=== PATIENT | male | born 1985 | race Caucasian/White ===

== ENCOUNTER → 2017-11-09 14:53 | Outpatient (CLI) | payer OTHER, SELFPAY ==
--- NOTE | 2017-11-09 | DI.MRI.S_ITS ---
PROCEDURE: MR LUMBAR SPINE WO CON INDICATIONS: LOW BACK PAIN TECHNIQUE: Noncontrast sagittal T1 spin echo and T2 fast echo, sagittal STIR, axial T1 and T2 fast spin echo through the lumbar spine. In cases with scoliosis, additional coronal T2 fast spin echo may be performed. COMPARISON: None. FINDINGS: Image quality: Excellent. Alignment and Curvature: There is grade 1 retrolisthesis of L5 over S1. Bone Marrow: Degenerative endplate signal changes are present in L4, L5 and S1. No acute vertebral body compression fractures. Spinal Cord: Conus medullaris terminates at the L1-L2 level. Visualized cord demonstrates normal signal and size. Paraspinous Soft Tissues: No paravertebral masses. L1-L2: Normal appearance. L2-L3: Mild loss of disc height and disc desiccation. There is broad posterior disc bulge. The central canal is mildly narrowed. Mtcy-kb-ijppucez bilateral foraminal stenosis. L3-L4: Mild loss of disc height and disc desiccation. There is broad posterior disc bulge and disc osteophyte complex. The central canal is mildly narrowed. Xybd-zg-qefhhbee bilateral foraminal stenosis. L4-L5: Qeld-ck-psgcocqv loss of disc height and disc desiccation. There is broad posterior disc bulge and disc osteophyte complex. Superimposed posterior central disc protrusion. The central canal is mildly narrowed. Jppz-od-qdlqntzg bilateral foraminal stenosis. L5-S1: Mild loss of disc height and moderate disc desiccation. There is broad posterior disc bulge and posterior central disc protrusion. There is a right paramedian annular tear. The central canal is mildly narrowed. Moderate bilateral foraminal stenosis. IMPRESSION: 1. Multilevel degenerative disc disease and facet arthropathy as described. 2. Mild central canal stenosis as described. 3. Moderate foraminal stenosis at L5-S1 bilaterally, and bsjf-eq-glirinss foraminal stenoses at several other levels. Dictated by: Thao Cui M.D. on 11/09/2017 at 15:30 Transcribed by: YVETTE on 11/09/2017 at 15:37 Approved by: Thao Cui M.D. on 11/09/2017 at 17:37
== END ==
PROVIDERS: Visit Provider Family Medicine
DX: M54.5 Low back pain (principal); M51.36 Other intervertebral disc degeneration, lumbar region; M47.816 Spondylosis without myelopathy or radiculopathy, lumbar region
CPT/HCPCS: 72148

== ENCOUNTER 2018-01-05 10:57 | Inpatient (IN) | payer OTHER, SELFPAY ==
[2017-12-22 12:51] VITALS: BMI 32.1
[2018-01-05] VITALS (17 sets, daily range): BP systolic 89–139; BP diastolic 41–75; PULSE 73–109; RESP 10–19; TEMP 36–37.1; O2SAT 92–100; BMI 32.1
[2018-01-05] MEDS: LACTATED RINGERS 1,000 ML 42 ML IV ×2 (11:35→15:22)
--- NOTE | 2018-01-05 11:45 | PM.PREOP ---
Pre-operative Note Interval Note Pre-op Check: Yes History & Physical Reviewed by Physician, Yes Exam Performed and Yes History & Physical exam performed today by Physician Changes: No
[2018-01-05] MEDS: CEFAZOLIN 2 GM/100 ML FROZ.PIGGY IV ×2 (12:17→18:48)
--- NOTE | 2018-01-05 12:51 | SUR.OPER ---
Prone on spine table, head in foam head support, padded chest and pelvic supports, gel pad at knees, lower legs supported by pillows; nipples, genitalia and toes free of pressure, arms secured on foam padded arm boards at <90 degrees abduction. Tape over blanket at thigh secured to table.
[2018-01-05] MEDS: BUPIVACAINE 0.25% W/ EPI VIAL 50 ML INJ (13:05)
[2018-01-05] MEDS: BUPIVACAINE LIPOSOME 266 MG/20 ML VIAL INJ (13:11)
--- NOTE | 2018-01-05 14:29 | DI.RAD.S_ITS ---
PROCEDURE: XR LUMBAR SPINE 2-3V INDICATIONS: L5-S1 TLIF TECHNIQUE: 2 intraoperative fluoroscopic views of the lumbar spine were acquired. COMPARISON: None. FINDINGS: Bones: Patient is status post transpedicular fusion of L5 and S1 vertebral bodies with intervertebral spacer placement L5-S1 level. Alignment of lumbar spine is anatomic. Soft tissues: No suspicious soft tissue calcifications. IMPRESSION: Post fusion changes at L5-S1 level. Dictated by: Curt Watson M.D. on 01/05/2018 at 15:01 Approved by: Curt Watson M.D. on 01/05/2018 at 15:03
--- NOTE | 2018-01-05 14:30 | P.OP_ITS ---
Operative Date/Time/Diagnoses Date of procedure: 01/05/18 Time of procedure: 13:29 Pre-op diagnosis: 1. L5-S1 hx of microdiscectomy with epidural adhesion and scarring 2. L4-5, L5-S1 spinal stenosis 3. L5-S1 spondylosis with radiculopathy Procedure & Clinicians Procedure: 1. L5-S1 Postero-lateral and posterior interbody fusion 2. L5-S1 interbody cage placement. 3. L5-S1 decompressive laminectomy with bilateral facetecomies 4. L5-S1 Posterior non-segmental instrumentation 5. L4-5 hemilaminectomy 6. Utilization of microsurgical technique and operating microscope Same procedure as scheduled: Yes Indications: Patient has been having chronic back pain and worsening lumbar radiculopathy. Patient failed multiple conservative management with worsening pain weakness and numbness in her lower extremity. Patient has been having difficulty performing activity of daily living. After discussing risks benefits of treatment options, patient elected proceed with surgery. Surgeon: Amina Lan Chainstitch Felled Seam Operator: Savanah Garrido Click Yes if Unassisted: No Anesthesia Type: General Operative Notes Closure Type: primary Specimen(s): none sent Implants & Drains: Globus revolve screws and Rise cage Estimated Blood Loss (mL): 50 Blood products transfused: none Procedure in detail: Patient was seen in the preoperative area. Risks and benefits of the surgery was discussed with the patient. Informed consent was obtained from the patient and placed in the chart. Surgical site was marked. Patient was taken to the operative room. General anesthesia was administered. Prophylactic antibiotic was given to the patient less than 30 min before the incision was made. Patient was placed into a prone position on the Michael table. Patient's back was then prepped and draped in the sterile fashion. Time- out was performed at this time. Using AP and lateral C-arm imaging the interval between L4-5 L5-S1 was identified and marked on patient's back. A 2 inch incision 2 in from midline was made on the left side first. The fascia was incised in line with skin incision. Globus MARS retractors was placed inside the incision and docked onto the L5 lamina. Using microsurgical technique and operating microscope, a L5 laminectomy and L5-S1 facetectomy was performed using a Kerrison rongeur. The disc space at L5-S1 was identified. And a total diskectomy was performed at L5- S1 level. The endplates were decorticated using a rasp and shaver. The total diskectomy and decortication was performed at the L5-S1 level in order to to accomplish a L5-S1 interbody fusion. The local bone from the laminectomy and facetectomy was saved for local bone grafting. After the total diskectomy and decortication was completed, Globus viacell bone graft material was combined with local bone that was harvested earlier. Via cell bone graft was obtained and was placed into the L5-S1 interbody space along with a expandable cage. The cage was expanded to its maximum height using the torque limiting screwdriver. At this time the MARS retractor was redirected over the L4 lamina. Using microsurgical technique and operating microscope, a L4 heminectomy was performed using the Kerrison rongeur. The ligamentum flavum was also resected at the side of the hemilaminectomy for further decompression of the epidural space. At this time a mirror image incision was made on the right side. The fascia was incised in line with the skin incision. Globus MARS retractor was inserted and docked onto the L5-S1 posterolateral gutter. Using the power drill, posterior- lateral decortication was performed at L5-S1 level until bleeding cortical bone was identified. The remaining bone grafting material was placed into the L5-S1 posterior lateral gutter he order to accomplish posterolateral fusion at the L5- S1 level. Using the double C-arm technique, pedicle screws were placed into the L5 and S1 pedicles bilaterally. This was done by placing the Jamshidi needle into the pedicles, then placing the guidewires over the Jamshidi needle, and finally placing the cannulated screws over the guidewires bilaterally. After the pedicle screws were placed, 2 titanium rods was locked into the heads of the pedicle screws using locking caps and torque limiting screwdriver. After all the hardware was placed, and confirmed with AP and lateral C-arm imaging, the wound was then irrigated with sterile normal saline and packed with Ray-Elis gauze for 3 min to accomplish hemostasis. After the gauze was removed the deep fascia was closed with #1 Vicryl suture. The subcutaneous layer was closed with 2-0 Vicryl. The skin was closed with skin kaylie. Patient tolerated the procedure well. There were no complications. Complications: none Condition: stable Disposition: PACU Plan for aftercare: Admit to inpatient hospital
[2018-01-05] MEDS: HYDROMORPHONE 2 MG INJ 0.5 MG IV ×4 (14:53→15:23)
[2018-01-05] MEDS: LORazepam 2 MG/ML SYRINGE 0.25 MG IV ×2 (15:00→15:21)
--- NOTE | 2018-01-05 16:18 | PC.NURSE ---
patient up to floor at 1600, a&ox3, 99% on ra, denies nausea, sob, or dizziness. scd's are on and active. patient now sleeping after assessment/admission. patient stated pain is a 6/10, will administer pain medication as appropriate. dressing looked at by pacu and this rn, is c/d/i. rn clinical resource states patient voided before surgery; patient has been oriented to room/call light, and encouraged to call for assistance. ba is active. urinal placed at bedside and patient instructed on it's use. iv is patent, ivf infusing as ordered. call light in reach. will continue to monitor.
[2018-01-05] MEDS: SODIUM CHLORIDE 0.9% 1,000 ML 100 ML IV (16:36)
[2018-01-05] MEDS: OXYCODONE IR 5 MG TABLET 10 MG PO ×3 (16:37→23:50)
--- NOTE | 2018-01-05 17:55 | PT.IIE ---
Current Diagnoses Spinal stenosis, lumbar region without neurogenic claudication (01/05/18) Other specified postprocedural states (01/05/18) Surgery Performed Operation Date: 01/05/18 12:45 Actual Procedures p L4-5 Hemilaminectomy, L5-S1 TLIF w/Posterior Instru. - Amina Lan MD Surgical History (Last Updated 12/22/17 @ 13:42 by Kirti Hammond, RN) Hx of discectomy (Acute) Medical History (Last Updated 12/22/17 @ 13:12 by Kirti Hammond RN) Acid reflux (Acute) HTN (hypertension) (Acute) Numbness and tingling of both legs (Acute) Sciatica (Acute) Seasonal allergies (Acute) Sleep apnea with use of continuous positive airway pressure (CPAP) (Acute) Physical Therapy Inpatient Evaluation/Re-Eval M1 PT/OT-IP Prior Functional Status Start: 01/05/18 17:39 Freq: NEEDED Status: Active Protocol: Document 01/05/18 17:40 EA (Rec: 01/05/18 17:54 EA [id number]) Medical Review Prior Functional Status Medical History Reviewed Yes Diet/Fluid Consistency Regular Communication Alert, oriented x 3 Mobility and Gait Indep with ability to walk more than 3 blocks with no AD Activities of Daily Living and IADL's indep Prior Functional Level (Other details) [place] Social History Household Members spouse children Living Arrangements House Home Environment Standard Height Toilet Employment Status Unemployed Additional Social History Comment Last employed 1.5 month ago M2 PT-IP Current Condition Start: 01/05/18 17:39 Freq: NEEDED Status: Active Protocol: Document 01/05/18 17:40 EA (Rec: 01/05/18 17:54 EA [id number]) Physical Therapy Current Condition Current Condition Evaluation Date 01/05/18 Treatment Diagnosis S/P L5-S1 TLIF Precautions Lumbar Precautions Log Roll No Twisting Limit Bending Lifting Restriction of 10 lbs Gait Belt above Incisional Area Weight Bearing Status Weight Bearing Status Full Weight Bearing M3 PT-IP Subjective Start: 01/05/18 17:39 Freq: NEEDED Status: Active Protocol: Document 01/05/18 17:40 EA (Rec: 01/05/18 17:54 EA [id number]) Subjective Physical Therapy Visit Type Type Initial Evaluation Visit Start Time 16:50 Visit Stop Time 17:35 Total Visit Minutes 45 Physical Therapy Visit Comments Patient Comments Patient wants to get indep in all functional transfers and be able to walk 200 ft indep prior to discharge Therapy Pain Assessment Pain When Pain Assessed At Rest Pain Present Pain Present Pain Reported Location Lower Back Intensity 5 Description Acute M4 PT-IP Mobility and Gait Start: 01/05/18 17:39 Freq: NEEDED Status: Active Protocol: Document 01/05/18 17:40 EA (Rec: 01/05/18 17:54 EA [id number]) PT-Bed Mobility Assessment Rolling Type of Rolling Log Rolling Bilateral Level of Assist Contact Guard Assistance Minimal Assistance Supine to Sit Supine to Sit Contact Guard Assistance Minimal Assistance Sit to Supine Sit to Supine Contact Guard Assistance Minimal Assistance Scooting Scooting Up and Down in Bed Standby Assistance PT-Transfer Assessment Sit to and From Stand Sit to and from Stand Contact Guard Assistance Equipment Transfer Assistive Device Gait Belt Transfers Transfer Destination Bed Toilet Transfer Technique stepping Comments Mobility Comments Patient requires CGA due to general fatigue and slight nausea. Gait Assessment Gait Gait Assistance Required: Contact Guard Assist Able to Maintain Weight Bearing Status Yes During Gait Gait Deviations General Gait Pattern Within Normal Limits Comments Gait Comments Patient able to ambulate with near to normal gait, however slow and cautious. PT-Balance Assessment Sitting Balance and Reactions Static Sitting Balance Ability Good Standing Balance and Reactions Static Standing Balance Ability Good Comments Other Balance Tests/Deviations/Treatment Dynamic balance test not : performed due to pre-caution, however noted WFL with spontaneous movement. M5 PT-IP Objective Assessments Start: 01/05/18 17:39 Freq: NEEDED Status: Active Protocol: Document 01/05/18 17:40 EA (Rec: 01/05/18 17:54 EA [id number]) Orientation Orientation/Cognition Level of Alertness Alert Orientation Birthday Date Year Language Function Ability No Deficits Noted Safety Awareness Understands Safety Issues Memory Description No Deficits Noted Gross Range of Motion Upper Extremity ROM Assessment Within Functional Limits Lower Extremity ROM Assessment Within Functional Limits Strength Upper Extremity Strength Assessment Within Functional Limits Lower Extremity Strength Assessment Within Functional Limits Coordination Assessment Gross Coordination Gross Coordination WNL Assessment Pronation/Supination Test Normal Performance Foot Tapping Test Normal Performance Heel on Diaz Test Normal Performance Sensation Assessment Sensation Gross Sensation WNL Comments Sensation Comments Slight deficit to right medial calf with light touch M6 PT-IP Treatment Start: 01/05/18 17:39 Freq: NEEDED Status: Active Protocol: Document 01/05/18 17:40 EA (Rec: 01/05/18 17:54 EA [id number]) Physical Therapy Treatment Education Education Provided Precautions Weight Bearing Status Post-Op Packet Safety M7 PT-IP Assessment and Plan Start: 01/05/18 17:39 Freq: NEEDED Status: Active Protocol: Document 01/05/18 17:40 EA (Rec: 01/05/18 17:54 EA [id number]) PT Summary Assessment and Plan Potential Rehabilitation Potential Excellent Status of Condition at Evaluation Stable Summary Impairments Pain Bed Mobility Transfers Activity Tolerance Assessment Summary Patient exhibits decreased tolerance to functional transfers and mobility due to pain and general body fatigue. No noted significant weakness or sensory alteration to both LE's. Patient requires assistance at this time for safe mobility and transfers. Patient demonstrates good potential for recovery prior to discharge. Goals Bed Mobility Goal Independent Transfer Goal Independent Gait Goal Independent Gait Distance 200 ft Days to Meet Goals 1 Frequency of Treatment Frequency Of Treatment Twice a Day Treatment Plan Physical Therapy Treatment Plan Bed Mobility Training Transfer Training Gait Training Therapeutic Exercise Balance Retraining Discharge Planning Hot or Cold Pack Recommendations To Nursing Amount of Assist Needed 1 Person Assist Discharge Recommendations PT Discharge Recommendations Home with Assistance
--- NOTE | 2018-01-05 19:42 | PC.NURSE ---
patient up to br, has voided successfully. spouse and aunt have left facility, spouse will not be spending the night. patient is sitting up in chair with call light in reach. has eaten dinner, reports some minor nausea but refused interventions offered. oxycodone was successful in managing his pain. will continue to monitor.
[2018-01-05] MEDS: DOCUSATE 100 MG CAPSULE PO (20:24)
[2018-01-05] MEDS: SENNOSIDES 8.6 MG TABLET 17.2 MG PO (20:24)
[2018-01-05] MEDS: hydrOXYzine pamoate 25 MG CAPSULE PO (20:24)
[2018-01-05] MEDS: HYDROMORPHONE 1 MG INJ 0.5 MG IV (22:01)
--- NOTE | 2018-01-06 00:11 | PC.NURSE ---
Addendum entered by Judi Knight R.N. 01/06/18 05:54: Medicated with Oxycodone for complaint of 4/10 pain without movement. Discussed pain options availability . Original Note: Addendum entered by Judi Knight R.N. 01/06/18 05:16: Medicated with Vistaril for 5/10 pain and feels he is able to wait for Oxycodone rather than taking Dilaudid at this time. Shivering. Temp 96.6 so provided warm blankets. Increased drainage on dressing but now is more serosanguinous with no leakage. Will continue to monitor. Original Note: Addendum entered by Judi Knight R.N. 01/06/18 02:52: Woke patient (as he requested) to give pain medication (Oxycodone). Was sleeping soundly with FLACC of 0 but once awake states pain in right hip is 5/10; provided pain medication and ice pack for comfort. Original Note: Addendum entered by Judi Knight R.N. 01/06/18 01:07: States pain has gotton worse and is not 7/10; medicated with Vistaril + IV Dilaudid. Original Note: Patient is alert and oriented. Breath sounds are CTA with RA sat of 99%; using CPAP for sleep. HRR. Denies nausea. BT hypoactive but states he is passing flatus. Denies dysuria, frequency, urgency or incontinence. Moving self in bed but is assisted to bathroom when out of bed and is steady on feet. Dressing to back with sanguinous drainage noted and outlined. States pain after being up to bathroom is 6/10 in back and right hip; medicated with Oxycodone. Wearing bilateral footie SCD's. Fall risk score is medium; bed alarm not in use as patient oriented and calling for assistance appropriately.
[2018-01-06] MEDS: hydrOXYzine pamoate 25 MG CAPSULE PO ×3 (00:56→19:57)
[2018-01-06] MEDS: HYDROMORPHONE 1 MG INJ 0.5 MG IV (01:00)
[2018-01-06] MEDS: CEFAZOLIN 2 GM/100 ML FROZ.PIGGY IV (02:44)
[2018-01-06] MEDS: SODIUM CHLORIDE 0.9% 1,000 ML 100 ML IV (02:45)
[2018-01-06] MEDS: OXYCODONE IR 5 MG TABLET 10 MG PO ×7 (02:47→22:44)
[2018-01-06 05:10] VITALS: BP 140/59; PULSE 96; RESP 16; TEMP 35.9; O2SAT 95
[2018-01-06 06:05] LABS: Hematocrit 42.4 % (41-53); Hemoglobin 14.9 g/dL (13.5-17.5)
[2018-01-06 07:45] VITALS: BP 143/76; PULSE 94; RESP 16; TEMP 36.4; O2SAT 99
[2018-01-06] MEDS: HYDROMORPHONE 0.5 MG INJ IV ×2 (07:56→19:57)
[2018-01-06] MEDS: DOCUSATE 100 MG CAPSULE PO ×2 (07:57→20:01)
--- NOTE | 2018-01-06 08:13 | PT.IPTN ---
Current Diagnoses Spinal stenosis, lumbar region without neurogenic claudication (01/05/18) Other specified postprocedural states (01/05/18) Surgery Performed Operation Date: 01/05/18 12:45 Actual Procedures p L4-5 Hemilaminectomy, L5-S1 TLIF w/Posterior Instru. - Amina Lan MD Physical Therapy Treatment Note M2 PT-IP Current Condition Start: 01/05/18 17:39 Freq: NEEDED Status: Active Protocol: Document 01/05/18 17:40 EA (Rec: 01/05/18 17:54 EA [id number]) Physical Therapy Current Condition Current Condition Evaluation Date 01/05/18 Treatment Diagnosis S/P L5-S1 TLIF Precautions Lumbar Precautions Log Roll No Twisting Limit Bending Lifting Restriction of 10 lbs Gait Belt above Incisional Area Weight Bearing Status Weight Bearing Status Full Weight Bearing M3 PT-IP Subjective Start: 01/05/18 17:39 Freq: NEEDED Status: Active Protocol: Document 01/06/18 08:00 AMB (Rec: 01/06/18 08:13 AMB [email or web address]) Subjective Physical Therapy Visit Type Type Treatment Note Visit Start Time 07:45 Visit Stop Time 08:10 Total Visit Minutes 25 Number of INTERIM CONTROLLER Visits 0 Physical Therapy Visit Comments Patient Comments Pt reports 5/10 back pain Therapy Pain Assessment Pain When Pain Assessed At Rest Pain Present Pain Present Pain Reported M4 PT-IP Mobility and Gait Start: 01/05/18 17:39 Freq: NEEDED Status: Active Protocol: Document 01/06/18 08:00 AMB (Rec: 01/06/18 08:13 AMB [email or web address]) PT-Bed Mobility Assessment Rolling Type of Rolling Log Rolling Bilateral Level of Assist Standby Assistance Supine to Sit Supine to Sit Standby Assistance Sit to Supine Sit to Supine Standby Assistance PT-Transfer Assessment Equipment Transfer Assistive Device None Comments Mobility Comments Pt with SBA for IV management Stair Climbing Assessment Comments Stair Climbing Comments 3 ascend and descend M5 PT-IP Objective Assessments Start: 01/05/18 17:39 Freq: NEEDED Status: Active Protocol: Document 01/06/18 08:00 AMB (Rec: 01/06/18 08:13 AMB [email or web address]) Other Assessments Other Other Assessments Pt doing well this morning. Able to perform all bed moblity and gait without physical assistance. Still slow and careful, but denies dizziness or lightheadedness. Will be safe to d/c with when medically appropriate. M6 PT-IP Treatment Start: 01/05/18 17:39 Freq: NEEDED Status: Active Protocol: Document 01/06/18 08:00 AMB (Rec: 01/06/18 08:13 AMB [email or web address]) Physical Therapy Treatment Education Education Provided Precautions Safety M7 PT-IP Assessment and Plan Start: 01/05/18 17:39 Freq: NEEDED Status: Active Protocol: Document 01/06/18 08:00 AMB (Rec: 01/06/18 08:13 AMB [email or web address]) PT Summary Assessment and Plan Recommendations To Nursing Amount of Assist Needed Standby Assistance Discharge Recommendations PT Discharge Recommendations Home with Assistance
[2018-01-06] MEDS: DEXAMETHASONE 10 MG/ML VIAL IV (10:02)
[2018-01-06 11:45] VITALS: BP 147/73; PULSE 81; RESP 16; TEMP 36.4; O2SAT 99
--- NOTE | 2018-01-06 12:59 | OT.IP.EVAL ---
Current Diagnoses Spinal stenosis, lumbar region without neurogenic claudication (01/05/18) Other specified postprocedural states (01/05/18) Surgery Performed Operation Date: 01/05/18 12:45 Actual Procedures p L4-5 Hemilaminectomy, L5-S1 TLIF w/Posterior Instru. - Amina Lan MD Past Medical History (Last Updated 12/22/17 @ 13:12 by Kirti Hammond, RN) Acid reflux (Acute) HTN (hypertension) (Acute) Numbness and tingling of both legs (Acute) Sciatica (Acute) Seasonal allergies (Acute) Sleep apnea with use of continuous positive airway pressure (CPAP) (Acute) Surgical History (Last Updated 12/22/17 @ 13:42 by Kirti Hammond RN) Hx of discectomy (Acute) Occupational Therapy Inpatient Evaluation/Re-Eval M1 PT/OT-IP Prior Functional Status Start: 01/05/18 17:39 Freq: NEEDED Status: Active Protocol: Document 01/05/18 17:40 EA (Rec: 01/05/18 17:54 EA [id number]) Medical Review Prior Functional Status Medical History Reviewed Yes Diet/Fluid Consistency Regular Communication Alert, oriented x 3 Mobility and Gait Indep with ability to walk more than 3 blocks with no AD Activities of Daily Living and IADL's indep Prior Functional Level (Other details) [place] Social History Household Members spouse children Living Arrangements House Home Environment Standard Height Toilet Employment Status Unemployed Additional Social History Comment Last employed 1.5 month ago M1 PT/OT-IP Prior Functional Status Start: 01/06/18 12:47 Freq: NEEDED Status: Active Protocol: Document 01/06/18 12:47 CCC (Rec: 01/06/18 12:59 [facility] [id number]) Medical Review Prior Functional Status Medical History Reviewed Yes Diet/Fluid Consistency Regular Communication Alert, oriented x 3 Mobility and Gait Indep with ability to walk more than 3 blocks with no AD Activities of Daily Living and IADL's indep Prior Functional Level (Other details) Active type of work [place] Social History Household Members spouse children Living Arrangements House M2 OT-IP Current Condition Start: 01/06/18 12:47 Freq: Status: Active Protocol: Document 01/06/18 12:47 CCC (Rec: 01/06/18 12:59 [facility] [id number]) Occupational Therapy Current Condition Current Condition Evaluation Date 01/06/18 Treatment Diagnosis Spinal stenosis Diagnosis Onset Date 01/05/18 Post Operative Precautions Lumbar Precautions Log Roll No Twisting Limit Bending Lifting Restriction of 10 lbs Gait Belt above Incisional Area Weight Bearing Status Weight Bearing Status Full Weight Bearing M3 OT- IP Subjective and Pain Start: 01/06/18 12:47 Freq: Status: Active Protocol: Document 01/06/18 12:47 [facility] (Rec: 01/06/18 12:59 [facility] [id number]) OT- Subjective Occupational Therapy Visit Type Type Initial Evaluation Visit Start Time 12:00 Visit Stop Time 12:25 Total Visit Minutes 25 Occupational Therapy Visit Comments Patient Comments Pt willing to do OT. OT Pain Assessment Pain When Pain Assessed At Rest Pain Present Pain Present Denied Pain M4 OT- IP ADL's Start: 01/06/18 12:47 Freq: Status: Active Protocol: Document 01/06/18 12:47 [facility] (Rec: 01/06/18 12:59 [facility] [id number]) OT [id number] General Evaluation Self-Feeding Ability Independent OT ADL-Grooming General Evaluation Grooming Ability Standby Assistance Comments OT Grooming Comments Set-up only per pt. OT ADL-Dressing General Eval Upper Body Dressing Ability Independent Lower Body Dressing Ability Maximum Assistance Areas Needing Assistance Socks Comments OT Dressing Comments Pt educated on AED for LB dressing and now able to do independently. OT ADL-Toileting General Evaluation Toileting Ability Standby Assistance Comments OT Toileting Comments Pt walking without device, SBA for safety. Spoke of use of FWW to help stand or counter from toilet. OT ADL-Bathing Comments OT Bathing Comments Suggested to get shower chair. M6 OT- IP Functional Cognition Start: 01/06/18 12:47 Freq: Status: Active Protocol: Document 01/06/18 12:47 [facility] (Rec: 01/06/18 12:59 [facility] [id number]) Cognitive Factors Limiting Selfcare Function Cognitive Ability Level of Alertness Alert Patient Orientation Name Age Birthday Month Date Year Day of Week Place Situation Attention Span Ability Capable of Focused Attention Capable of Sustained Attention Ability to Follow Commands Able to Follow Multi-Step Commands Memory Description No Deficits Noted Safety Awareness No Deficits Noted OT- Vision and Hearing OT- Hearing Assessment OT- Hearing Assessment WFL M7 OT- IP Mobility and Balance Start: 01/06/18 12:47 Freq: Status: Active Protocol: Document 01/06/18 12:47 [facility] (Rec: 01/06/18 12:59 [facility] [id number]) OT-Transfer Assessment Sit to and From Stand Sit to and from Stand Standby Assistance Transfers Transfer Ability Standby Assistance OT- Balance Assessment Sitting Balance and Reactions Static Sitting Balance Ability Normal Dynamic Sitting Balance Ability Normal Standing Balance and Reactions Static Standing Balance Ability Good Dynamic Standing Balance Ability Fair M8 OT- IP Objective Assessments Start: 01/06/18 12:47 Freq: Status: Active Protocol: Document 01/06/18 12:47 [facility] (Rec: 01/06/18 12:59 [facility] [id number]) OT Gross Range of Motion Upper Extremity Range of Motion Assessment Within Functional Limits OT Strength Upper Extremity Strength Assessment Within Functional Limits M9 OT- IP Assessment and Plan Start: 01/06/18 12:47 Freq: Status: Active Protocol: Document 01/06/18 12:47 [facility] (Rec: 01/06/18 12:59 [facility] [id number]) OT Summary Assessment and Plan Potential Rehabilitation Potential Excellent Analytic Complexity at Evaluation Low Summary OT Impairments Functional Mobility Bathing Goals Dressing Goal Independent Toileting Goal Independent Bathing Goal Standby Assistance Toilet Transfer Goal Independent Shower Transfer Goal Standby Assistance Days to Meet Goals 2 Frequency of Treatment Frequency Of Treatment Once a Day Treatment Plan OT Treatment Plan ADL Training Functional Mobility Patient/Family Education Discharge Planning Discharge Recommendations OT Discharge Recommendations Home with Assistance Home Equipment Needs shower chair
[2018-01-06] MEDS: DEXAMETHASONE 4 MG TABLET PO ×2 (13:22→19:14)
--- NOTE | 2018-01-06 13:28 | PM.PNPO.1 ---
Subjective Date Patient Seen: 01/06/18 Time Patient Seen: 07:28 Interval history: POD #1 status post lumbar fusion with Dr. Lan. He is complaining of new right sided pain. The numbness and burning pain on his left foot has disappeared since surgery. His pain has been controlled with oxycodone. Patient has had no previous issues taking steroids. He has not been up with physical therapy yet. He is urinating without any difficulty or assistance. Exam Vital Signs (past 8 hours): - 01/06/18 07:45 01/06/18 11:45 Temperature 97.5 F L 97.5 F L Pulse Rate 94 H 81 Respiratory Rate 16 16 Blood Pressure 143/76 H 147/73 H Pulse Oximetry 99 99 Oxygen Delivery Method Room Air Oxygen Flow Rate 4 Narrative Exam Narrative: Patient lying in bed in no acute distress. He is alert and oriented x3. Calves are soft, compressible, nontender bilaterally. Pulses are symmetrical. He is able to Dorsiflex and plantar flex. 5/5 strength TA and EHL. Objective Labs Result Diagrams: 01/06/18 05:45 Labs: Laboratory Results - last 24 hr 01/06/18 05:45 Hgb 14.9 Hct 42.4 Assessment & Plan Post-op Postoperative Procedures Operation Date: 01/05/18 12:45 Actual Procedures Side Surgeon p L4-5 Hemilaminectomy, L5-S1 TLIF w/Posterior Instru. Amina Lan MD POD #1 status post lumbar fusion with Dr. Lan. Will continue current pain management. Will start 24 hr steroid burst for new sided symptoms. We will plan to get up with physical therapy today. Probable discharge home tomorrow as long as his pain is adequately controlled and he is mobilizing well.
--- NOTE | 2018-01-06 15:02 | PT.IPTN ---
Current Diagnoses Spinal stenosis, lumbar region without neurogenic claudication (01/05/18) Other specified postprocedural states (01/05/18) Surgery Performed Operation Date: 01/05/18 12:45 Actual Procedures p L4-5 Hemilaminectomy, L5-S1 TLIF w/Posterior Instru. - Amina Lan MD Physical Therapy Treatment Note M2 PT-IP Current Condition Start: 01/05/18 17:39 Freq: NEEDED Status: Active Protocol: Document 01/05/18 17:40 EA (Rec: 01/05/18 17:54 EA [id number]) Physical Therapy Current Condition Current Condition Evaluation Date 01/05/18 Treatment Diagnosis S/P L5-S1 TLIF Precautions Lumbar Precautions Log Roll No Twisting Limit Bending Lifting Restriction of 10 lbs Gait Belt above Incisional Area Weight Bearing Status Weight Bearing Status Full Weight Bearing M3 PT-IP Subjective Start: 01/05/18 17:39 Freq: NEEDED Status: Active Protocol: Document 01/06/18 14:00 GGD (Rec: 01/06/18 15:02 GGD [id number]) Subjective Physical Therapy Visit Type Type Treatment Note Visit Start Time 13:30 Visit Stop Time 14:00 Total Visit Minutes 30 Number of BRUSH OPERATOR Visits 1 Physical Therapy Visit Comments Patient Comments Pt want's to walk. Therapy Pain Assessment Pain When Pain Assessed At Rest Pain Present Pain Present Pain Reported Location Lower Back Intensity 3 Scale Used Numeric (1 - 10) Pain Management Techniques Re-positioning Timing of Activity with Medications M4 PT-IP Mobility and Gait Start: 01/05/18 17:39 Freq: NEEDED Status: Active Protocol: Document 01/06/18 14:00 GGD (Rec: 01/06/18 15:02 GGD [id number]) PT-Bed Mobility Assessment Rolling Type of Rolling Log Rolling Roll to Left Level of Assist Independent Supine to Sit Supine to Sit Independent Bedrails Sit to Supine Sit to Supine Independent Scooting Scooting to Edge of Bed Independent PT-Transfer Assessment Sit to and From Stand Sit to and from Stand Standby Assistance Equipment Transfer Assistive Device None Transfers Transfer Destination Bed Toilet Gait Assessment Gait Gait Assistance Required: Independent Distance (Feet) (feet) 250 Assistive Devices Assistive Device None M5 PT-IP Objective Assessments Start: 01/05/18 17:39 Freq: NEEDED Status: Active Protocol: Document 01/06/18 08:00 AMB (Rec: 01/06/18 08:13 AMB [email or web address]) Other Assessments Other Other Assessments Pt doing well this morning. Able to perform all bed moblity and gait without physical assistance. Still slow and careful, but denies dizziness or lightheadedness. Will be safe to d/c with when medically appropriate. M6 PT-IP Treatment Start: 01/05/18 17:39 Freq: NEEDED Status: Active Protocol: Document 01/06/18 14:00 GGD (Rec: 01/06/18 15:02 GGD [id number]) Physical Therapy Treatment Education Education Provided Precautions Safety M7 PT-IP Assessment and Plan Start: 01/05/18 17:39 Freq: NEEDED Status: Active Protocol: Document 01/06/18 14:00 GGD (Rec: 01/06/18 15:02 GGD [id number]) PT Summary Assessment and Plan Summary Assessment Summary Pt independent with all mobility. He has a good log roll techinque. he was stable and safe with gait without assistive device. Pt d/c home with family when medically stable. Frequency of Treatment Frequency Of Treatment Discharge Recommendations To Nursing Amount of Assist Needed Independent Discharge Recommendations PT Discharge Recommendations Home with Assistance
[2018-01-06 15:46] VITALS: BP 134/55; PULSE 85; RESP 17; TEMP 36.5; O2SAT 97
[2018-01-06] MEDS: SENNOSIDES 8.6 MG TABLET 17.2 MG PO (20:01)
[2018-01-06] MEDS: SODIUM CHLORIDE 0.9% FLUSH 10 ML IV (20:02)
[2018-01-06 20:57] VITALS: TEMP 36.9
[2018-01-06 23:00] VITALS: BP 141/80; PULSE 82; RESP 16; TEMP 36.4; O2SAT 99
[2018-01-07] MEDS: DEXAMETHASONE 4 MG TABLET PO ×2 (00:37→05:59)
[2018-01-07] MEDS: hydrOXYzine pamoate 25 MG CAPSULE PO ×2 (00:44→11:38)
[2018-01-07 02:00] VITALS: O2SAT 99
[2018-01-07] MEDS: OXYCODONE IR 5 MG TABLET 10 MG PO ×3 (02:29→11:36)
[2018-01-07 07:24] VITALS: BP 134/76; PULSE 71; RESP 16; TEMP 36.4; O2SAT 97
[2018-01-07] MEDS: ACETAMINOPHEN 325 MG TABLET 650 MG PO ×2 (08:15→14:13)
[2018-01-07] MEDS: DOCUSATE 100 MG CAPSULE PO (08:16)
[2018-01-07] MEDS: SODIUM CHLORIDE 0.9% FLUSH 10 ML IV (08:17)
--- NOTE | 2018-01-07 09:43 | OT.IP.TRT ---
Current Diagnoses Spinal stenosis, lumbar region without neurogenic claudication (01/05/18) Other specified postprocedural states (01/05/18) Surgery Performed Operation Date: 01/05/18 12:45 Actual Procedures p L4-5 Hemilaminectomy, L5-S1 TLIF w/Posterior Instru. - Amina Lan MD Occupational Therapy Treatment Note M2 OT-IP Current Condition Start: 01/06/18 12:47 Freq: Status: Active Protocol: Document 01/06/18 12:47 [facility] (Rec: 01/06/18 12:59 [facility] [id number]) Occupational Therapy Current Condition Current Condition Evaluation Date 01/06/18 Treatment Diagnosis Spinal stenosis Diagnosis Onset Date 01/05/18 Post Operative Precautions Lumbar Precautions Log Roll No Twisting Limit Bending Lifting Restriction of 10 lbs Gait Belt above Incisional Area Weight Bearing Status Weight Bearing Status Full Weight Bearing M3 OT- IP Subjective and Pain Start: 01/06/18 12:47 Freq: Status: Active Protocol: Document 01/07/18 09:42 [facility] (Rec: 01/07/18 09:43 [facility] [id number]) OT- Subjective Occupational Therapy Visit Type Type Discharge Summary Visit Start Time 10:30 Visit Stop Time 10:40 Total Visit Minutes 10 Notes Finalized all OT questions for equipment needs and options for sleeping at night. Pt states to shower when comes. Therefore discharge pt for Ot services.
--- NOTE | 2018-01-07 12:57 | PM.DS.1 ---
History of Present Illness Date Patient Seen: 01/07/18 Time Patient Seen: 07:57 Chief complaint: L4-5 hemilaminectomy L5-S1 tlif w/posterior instru Narrative: Status post lumbar fusion Discharge Providers Date of admission: 01/05/18 10:57 Consults: 01/05/18 16:02 Consult to Occupational Therapy Evaluate & Treat Comment: Physician Instructions: Evaluate and treat Consult to Physical Therapy Evaluate & Treat Comment: Physician Instructions: Evaluate and Treat Discharge provider: Lulu Parra PA-C Summary Discharge Diagnosis: Status post lumbar fusion Spinal stenosis Hospital Course: Yoel was admitted for lumbar fusion with Dr. Lan, and he consented to procedure. Hospital course was unremarkable. On postop day 2. He is feeling well and wanted to go home. He was worried about pain from the car ride home and was provided prescription for Dilaudid if he gets any exacerbation of symptoms from the car ride. Other than that he will be on oxycodone for pain management. He was eating and voiding without difficulty or assistance. Was started on a 24 hr steroid burst for right-sided symptoms. Status at Discharge Functional status at discharge: independent ambulation Exam Vital Signs (past 8 hours): - 01/07/18 07:24 Temperature 97.5 F L Pulse Rate 71 Respiratory Rate 16 Blood Pressure 134/76 H Pulse Oximetry 97 Oxygen Delivery Method Room Air Oxygen Flow Rate 0 Narrative Exam Narrative: Patient is sitting in bedside chair no acute distress. He is alert and oriented x3. Sensation intact light touch throughout bilateral lower extremities. 5/5 bilateral lower extremity strength. Calves are soft, compressible, nontender bilaterally. He denies any increased pain or bowel or bladder changes. He has noted significant alleviation of right-sided symptoms after steroids started. Objective Labs Result Diagrams: 01/06/18 05:45 Discharge Plan Discharge Plan Patient Disposition: Home Discharge comment: DC home today with family with cover site dressing on Discharge Med Rec/Prescriptions Prescriptions: New acetaminophen 325 mg Tablet 325 mg PO Q4HR Qty: 60 RF: 0 docusate sodium 100 mg Capsule 100 mg PO BID Qty: 30 RF: 0 hydroxyzine pamoate 25 mg Capsule 25 mg PO Q6HR Qty: 40 RF: 0 hydromorphone [Dilaudid] 2 mg tablet 2 mg PO Q6H PRN (Reason: pain) Qty: 5 RF: 0 oxycodone 5 mg capsule 5 mg PO Q4-6H PRN (Reason: pain) Qty: 60 RF: 0 Continue cetirizine [Zyrtec] 10 mg Capsule 10 mg PO DAILY PRN (Reason: Seasonal allergies) RF: 0 Discontinued meloxicam [Mobic] 15 mg Tablet 15 mg PO DAILY PRN (Reason: pain) RF: 0 Follow up/Referrals: Amina Lan MD [Physician] - (Follow up in 10-14 days with KELLIE) Provider Discharge Instructions Diet: Regular Activity: No excessive bending, lifting, or twisting Cold/Heat Therapy: As needed Skin/Wound/Dressing Care Report to your healthcare provider any signs of infection, such as:: chills, fever and increased pain Dressing: Please leave dressing in place for 10-14 days Visit Report/Discharge Packet Instructions: DI for Transforaminal Lumbar Interbody Fusion Discharge Data Attending Provider: Amina Lan Admit Date/Time: 01/05/18 10:57
[2018-01-07] MEDS: HYDROMORPHONE 0.5 MG INJ IV (14:12)
--- NOTE | 2018-01-07 14:24 | PC.NURSE ---
Discharge instructions and home care handouts reviewed with patient, his , and his aunt at bedside. Patient and family state understanding and have no further questions or concerns. Dressing changed to water resistant dressing, cdi, incisions underneath with kaylie in place well approx without reddness or drainage noted. Patient requested dose of IV dilaudid as ordered for severe pain prn with movement to get into car, states his sciatic pain is flaring up and this medication will help him. Patient escorted out via wheelchair by GENERAL UTILITY MAINTENANCE REPAIRER with all belongings to be discharged to home with family.
--- NOTE | 2018-01-07 15:10 | CM.IDA ---
Discharge Planning/Care Management CM Discharge Assessment Start: 01/06/18 08:14 Freq: Status: Discharge Protocol: Document 01/06/18 08:14 [facility] (Rec: 01/06/18 08:21 [facility] [id number]) Discharge Planning Assessment Assigned Head Animal Keeper [facility] DPOA/Assigned Designee Name Diana Steele, spouse Contact Information [phone] Advance Directives? No: Declines further information Advance Directives on File No History Provided By Patient Prior Living Arrangements House Household Members spouse children Type of transporation used prior to Drives own vehicle admit Independent with ADL's Yes Is patient alert and oriented? Yes Barriers to Discharge No Discharge Plan Home Transportation Arrangement Family Referrals Initiated None needed Additional Comment PT rec on 01.06.18: Home w/ spouse to assist Whiteboard Updated in Patient Room with Yes name and ext. # of Head Animal Keeper Review Status In Process
== END 2018-01-07 14:27 | disposition home or self-care (01) | DRG 455 ==
PROVIDERS: Admitting Provider Orthopaedic Surgery Orthopaedic Surgery of the Spine; Visit Provider Orthopaedic Surgery Orthopaedic Surgery of the Spine
PROC: 0SG30AJ Fusion of Lumbosacral Joint with Interbody Fusion Device, Posterior Approach, Anterior Column, Open Approach (ICD-10-PCS; principal; 2018-01-05 12:45)
DX: M48.061 Spinal stenosis, lumbar region without neurogenic claudication (principal); G47.33 Obstructive sleep apnea (adult) (pediatric); M96.1 Postlaminectomy syndrome, not elsewhere classified; M48.07 Spinal stenosis, lumbosacral region; M47.27 Other spondylosis with radiculopathy, lumbosacral region
CPT/HCPCS: 36415; 72100; 76001; 85014; 85018; 97116; 97161; 97165; 97530; 97535; C1776; C9290; J0330; J0690; J1100; J1170; J2060; J2250; J2405; J2704; J3010

== ENCOUNTER → 2018-06-14 17:09 | Outpatient (CLI) | payer OTHER, SELFPAY ==
[2018-01-05 15:01] VITALS: BMI 32.1
--- NOTE | 2018-06-14 17:17 | DI.MRI.S_ITS ---
PROCEDURE: MR LUMBAR SPINE WO/W CON INDICATIONS: Low back and right radicular leg symptoms. Left dorsal foot pain TECHNIQUE: Noncontrast sagittal T1 spin echo and T2 fast spin echo, sagittal STIR, axial T1 and T2 fast spin echo through the lumbar spine. In cases with scoliosis, additional coronal T2 fast spin echo may be performed. After the administration of contrast, sagittal and axial T1 spin echo with fat saturation through the lumbar spine. COMPARISON: [facility] [place], CR, XR LUMBAR SPINE 2 OR 3 VIEWS, 04/04/2018, 14:06. [facility] [place], CR, XR LUMBAR SPINE 2 OR 3 VIEWS, 02/16/2018, 13:15. [facility], CR, XR LUMBAR SPINE 2-3V, 01/05/2018, 12:46. [facility], MR, MR LUMBAR SPINE WO CON, 11/09/2017, 15:11. FINDINGS: Image quality: Excellent. Alignment and curvature: There is normal bony alignment. Marrow: Marrow is of normal overall signal. No acute vertebral body compression fractures. No suspicious marrow enhancement. Mild metal artifact is noted adjacent to the posterior element fixation rods and transverse pedicle screws crossing L5-S1. There is also an interbody disc of listhesis, cage type, at L5-S1. Spinal cord: Conus medullaris terminates at the L1 level. Visualized spinal cord demonstrates normal signal, without suspicious enhancement. Paraspinous soft tissues: No paravertebral masses or abnormal enhancement. L1-L2: Normal appearance except for slight discoid reduction. L2-L3: No change in the mild degenerative disc height reduction and desiccation with a very slight posterior disc bulge and without appreciable spinal or foraminal stenosis on the left. There is, however, mild foraminal stenosis on the right as has been previously the case associated with a asymmetric posterior far lateral disc bulge in that area, slightly impinging on the right neural foramen as was also present in October of last year by MR scanning. L3-L4: Mild degenerative disc disease, slight posterior disc bulge. Mild facet osteoarthritis, minimal foraminal stenosis that appears symmetric. No spinal stenosis. L4-L5: Degenerative disc disease at this level is mild in severity with a slight posterior disc bulge. Facet osteoarthritis is present, as was previously the case, slightly greater on the left than the right and contributing to the presence of asymmetric mild foraminal stenosis, left greater than right. This represents the upper aspect of the area of surgical fusion performed subsequent to the 11/09/17 MR scanning. L5-S1: Degenerative disc disease is present, and what likely has been a discectomy appears to have been performed. An anterior interbody disc prosthesis is present, cage type by plain film imaging and with mild metal artifact. A recurrent disc bulge or herniation in this area is not present. No subluxation is found. No abnormal inflammation or fluid collection is seen. IMPRESSION: Expected postsurgical change in the L5-S1 area in this patient has undergone discectomy, interbody cage type disc prosthesis placement, and transverse pedicle screws with vertical fixation rods establishing normal alignment at L5-S1. There is no suspicion for recurrent disc bulge or herniation or postoperative abnormal fluid collection in this region. Over the lumbosacral spine more superiorly prior MR scanning is available for review from 11/09/17. No appreciable worsening of degenerative disc disease and facet osteoarthritis above the operative bed is found. Dictated by: Timothy Chicas M.D. on 06/15/2018 at 16:09 Approved by: Timothy Chicas M.D. on 06/15/2018 at 16:19
== END ==
PROVIDERS: Visit Provider Orthopaedic Surgery
DX: M54.5 Low back pain (principal); M79.672 Pain in left foot; M54.10 Radiculopathy, site unspecified
CPT/HCPCS: 72158; A9579